=== PATIENT | female | born 1990 | race Two or more races ===

== ENCOUNTER 2020-07-05 07:13 | Emergency (ER) | payer MEDICAID ==
[~2020-07-05] VITALS: Ht 172.7 cm; Wt 108.9 kg
[2020-07-05 07:22] VITALS: BP 178/99
[2020-07-05] MEDS ORDERED: AZIT250T13 PO (07:36)
[2020-07-05] MEDS ORDERED: GUAI1TBM19 PO (07:36)
== END 2020-07-05 07:44 | disposition home or self-care (01) ==
LOC: ER 07:18
DX: J32.9 Chronic sinusitis, unspecified (principal); Z88.1 Allergy status to other antibiotic agents; Z79.899 Other long term (current) drug therapy